=== PATIENT | female | born 1995 | race Caucasian/White ===

== ENCOUNTER 2021-12-06 09:36 | Emergency (ER) | payer OTHER ==
[2021-12-06 10:41] VITALS: BP 136/71; PULSE 85; TEMP 98.8; BMI 29.2
[2021-12-06] MEDS ORDERED: KETOROLAC TROMETHAMINE 30 MG/1 ML VIAL IM ONE (11:07)
[2021-12-06] MEDS ORDERED: KETOROLAC TROMETHAMINE 30 MG/1 ML VIAL ONE (11:15)
== END 2021-12-06 12:35 | disposition home or self-care (01) ==
LOC: JERFT 09:36
PROC: 3E023GC Introduction of Other Therapeutic Substance into Muscle, Percutaneous Approach (ICD-10-PCS; principal; 2021-12-06)
DX: S93.491A Sprain of other ligament of right ankle, initial encounter (principal); Y99.9 Unspecified external cause status
CPT/HCPCS: 73610-TC-RT-FY; 73630-TC-RT-FY; 99284-25